=== PATIENT | male | born 1980 | race Two or more races ===

== ENCOUNTER 2020-10-30 14:22 | Emergency (ER) | payer SELFPAY ==
[~2020-10-30] VITALS: Ht 172.7 cm; Wt 125.6 kg
[2020-10-30 15:00] VITALS: BP 127/69
[2020-10-30] MEDS ORDERED: KETOROLAC TROMETH 60MG/2ML VIAL IM ONE (15:00)
== END 2020-10-30 15:22 | disposition home or self-care (01) ==
LOC: ER 14:22
DX: M77.8 Other enthesopathies, not elsewhere classified (principal)
CPT/HCPCS: 96372; 99283; J1885

== ENCOUNTER 2020-11-26 18:21 | Emergency (ER) | payer OTHER ==
[~2020-11-26] VITALS: Ht 172.7 cm; Wt 125.6 kg
[2020-11-26 20:03] VITALS: BP 132/76
[2020-11-26] MEDS ORDERED: HYDROcodone-ACET 5/325MG TAB PO ONE (20:15)
== END 2020-11-26 22:05 | disposition home or self-care (01) ==
LOC: ER 18:23
DX: S13.9XXA Sprain of joints and ligaments of unspecified parts of neck, initial encounter (principal); V59.9XXA Occupant (driver) (passenger) of pick-up truck or van injured in unspecified traffic accident, initial encounter; Y93.89 Activity, other specified; Y92.89 Other specified places as the place of occurrence of the external cause; Y99.8 Other external cause status
CPT/HCPCS: 70450; 72100; 72125

== ENCOUNTER 2020-12-03 12:53 | Emergency (ER) | payer OTHER ==
[~2020-12-03] VITALS: Ht 172.7 cm; Wt 125.6 kg
[2020-12-03 14:45] VITALS: BP 134/85
== END 2020-12-03 15:41 | disposition home or self-care (01) ==
LOC: ER 12:57
DX: S16.1XXD Strain of muscle, fascia and tendon at neck level, subsequent encounter (principal); X58.XXXD Exposure to other specified factors, subsequent encounter

== ENCOUNTER 2021-01-14 10:37 | Emergency (ER) | payer OTHER ==
[~2021-01-14] VITALS: Ht 172.7 cm; Wt 125.6 kg
[2021-01-14 11:52] VITALS: BP 125/64
== END 2021-01-14 12:23 | disposition home or self-care (01) ==
LOC: ER 10:37
DX: S16.1XXA Strain of muscle, fascia and tendon at neck level, initial encounter (principal); S46.912A Strain of unspecified muscle, fascia and tendon at shoulder and upper arm level, left arm, initial encounter; V43.52XA Car driver injured in collision with other type car in traffic accident, initial encounter; Y93.89 Activity, other specified; Y92.410 Unspecified street and highway as the place of occurrence of the external cause; Y99.8 Other external cause status
CPT/HCPCS: 72040; 73030

== ENCOUNTER 2021-07-27 09:19 | Emergency (ER) | payer SELFPAY ==
[~2021-07-27] VITALS: Ht 172.7 cm; Wt 122.5 kg
[2021-07-27 11:07] VITALS: BP 135/75
[2021-07-27] MEDS ORDERED: GEN03OS OP (11:16)
== END 2021-07-27 11:21 | disposition home or self-care (01) ==
LOC: ER 09:19
DX: H10.9 Unspecified conjunctivitis (principal)